=== PATIENT | female | born 1980 | race African-American/Black ===

== ENCOUNTER 2018-01-04 04:19 | Emergency (ER) | payer SELFPAY ==
[2018-01-04 04:29] VITALS: BP 179/93
[2018-01-04] MEDS ORDERED: CLINDAMYCIN HCL 150 MG CAPSULE PO ONE (04:44)
[2018-01-04] MEDS ORDERED: BUPIVACAINE HCL 0.75% INJ/PF (7.5 MG/1 ML) 10 ML SDV INJ ONE (04:45)
[2018-01-04] MEDS ORDERED: HYDROCODONE/ACETAMINOPHEN 5-325 MG (6 TAB/ER DISP) PO PRN (04:45)
--- NOTE | 2018-01-04 04:52 | ER Document Report ---
HPI - HPI Patient complains to provider of: dental pain, facial swelling Pain Level: 5 Context: Patient is a 37-year-old female that comes to the emergency department for chief complaint of dental swelling and pain. She states the back lower tooth is broken and the side of her right face started swelling yesterday, she states that she is taking ibuprofen and Aleve with some relief. She denies fever, sore throat, neck pain. She denies history of the same. She does not have a dentist. She denies any daily medications. She denies . Past Medical History - General Information source: Patient - Social History Smoking Status: Never Smoker Drug Abuse: None Lives with: Family Family History: Reviewed & Not Pertinent - Medical History Medical History: Negative Surgical Hx: Negative - Immunizations Immunizations up to date: Yes Hx Diphtheria, Pertussis, Tetanus Vaccination: Yes Vertical Provider Document - CONSTITUTIONAL General Appearance: Mild Distress - Patient holding the right side of her face. Minimal swelling to the right side of the face, no swelling under the jaw or on the neck - INFECTION CONTROL TRAVEL OUTSIDE OF THE [place] IN LAST 30 DAYS: No - HEENT HEENT: Atraumatic, Normocephalic Mouth Diagram: 1 - Dental caries with surrounding erythema, no noted swelling, no induration or fluctuance suggesting abscess, oral pharyngeal exam unremarkable otherwise - NECK Neck: Normal Inspection - No evidence of Larry's angina. negative: Lymphadenopathy-Left, Lymphadenopathy-Right - RESPIRATORY Respiratory: Breath Sounds Normal, No Respiratory Distress - CARDIOVASCULAR Cardiovascular: Regular Rate, Regular Rhythm - GI/ABDOMEN Gastrointestinal: Abdomen Soft, Abdomen Non-Tender - MUSCULOSKELETAL/EXTREMETIES Musculoskeletal/Extremeties: MAEW, FROM, Non-Tender - NEURO Level of Consciousness: Awake, Alert, Appropriate - DERM Integumentary: Warm, Dry Course - Re-evaluation Re-evalutation: Patient with dental fracture, secondary infection, no evidence of abscess at this time. Discussed options, patient requests dental block, this was performed with good effect. Started on clindamycin because of facial swelling, discussed and provided follow-up, discussed return precautions with patient. Patient states understanding and agreement. - Vital Signs Vital signs: Temp Pulse Resp BP Pulse Ox 97.9 F 101 H 18 179/93 H 99 01/04/18 04:26 01/04/18 04:26 01/04/18 04:26 01/04/18 04:26 01/04/18 04:26 Procedures - Additional Procedures Dental block Additional Procedures: Other - Right inferior alveolar dental block performed using 3 mL's of 0.75 bupivacaine, area was aspirated and then injected, no significant bleeding, good anesthesia, no complications. Discharge - Discharge Clinical Impression: Pain, dental Condition: Stable Disposition: HOME, SELF-CARE Instructions: Oral Narcotic Medication ([facility]) Additional Instructions: Your evaluation is consistent with an infected tooth and the swelling from this. Take antibiotic as prescribed. Follow-up with the dental clinic referral for additional management so this does not continue to happen. Return if you worsen including increased swelling of the face. [facility] [address], [address] Prescriptions: Clindamycin HCl [Cleocin 150 mg Capsule] 150 mg PO Q6 #56 capsule Forms: Elevated Blood Pressure
== END 2018-01-04 05:04 | disposition home or self-care (01) ==
LOC: ER 04:19
DX: K08.9 Disorder of teeth and supporting structures, unspecified (principal); R22.0 Localized swelling, mass and lump, head
CPT/HCPCS: 99282; 64400; J3490